=== PATIENT | male | born 1965 | race African-American/Black ===

== ENCOUNTER 2016-10-10 17:33 | Emergency (ER) | payer SELFPAY ==
[~2016-10-10] VITALS: Ht 188 cm; Wt 93.0 kg
[2016-10-10] MEDS ORDERED: GABAPENTIN300 MG PO (18:23)
[2016-10-10 22:30] VITALS: BP 115/64
== END 2016-10-10 22:57 | disposition home or self-care (01) ==
LOC: EME 17:33
DX: G62.9 Polyneuropathy, unspecified (principal); G82.20 Paraplegia, unspecified; Z87.828 Personal history of other (healed) physical injury and trauma
CPT/HCPCS: 99281; 99283